=== PATIENT | female | born 1980 | race Caucasian/White ===

== ENCOUNTER 2019-05-08 12:05 | Inpatient (IN) ==
[2019-05-08] MEDS ORDERED: LR 500 ML IV ONE (12:46)
[2019-05-08] MEDS ORDERED: REGLAN PO ONE (12:46)
[2019-05-08] MEDS ORDERED: PEPCID PO ONE (12:46)
[2019-05-08] MEDS ORDERED: KEFZOL 1 GM/D5W 1 GM/50 ML IVPB IV PRN (12:46)
[2019-05-08] MEDS ORDERED: FENTANYL ONE (13:35)
[2019-05-08 13:36] LABS: URINE SOURCE VOIDED
[2019-05-08 13:46] LABS: BILIRUBIN URINE NEGATIVE (NEGATIVE); BLOOD URINE NEGATIVE (NEGATIVE); COLOR YELLOW; GLUCOSE URINE NEGATIVE (NEGATIVE); KETONE URINE NEGATIVE (NEGATIVE); LEUKOCYTES URINE SMALL (NEGATIVE); NITRITE URINE NEGATIVE (NEGATIVE); PH URINE 6.5; PROTEIN URINE TRACE mg/dL (NEGATIVE); SP GRAVITY URINE 1.017; TURBIDITY URINE HAZY (CLEAR); UROBILINOGEN URINE NORMAL (NORMAL)
[2019-05-08] MEDS ORDERED: KEFZOL 2 GM/D5W 2 GM/50 ML IVPB IV ONE (14:39)
[2019-05-08 14:44] LABS: UR AMPHETAMINES QUAL NONE DETECTED (NONE DETECT); UR BARBITUATES QUAL NONE DETECTED (NONE DETECT); UR BENZODIAZEPIN QUAL NONE DETECTED (NONE DETECT); UR CANNABINOIDS QUAL NONE DETECTED (NONE DETECT); UR COCAINE QUAL NONE DETECTED (NONE DETECT); UR METHADONE QUAL NONE DETECTED (NONE DETECT); UR OPIATES QUAL NONE DETECTED (NONE DETECT); UR OXYCODONE QUAL NONE DETECTED (NONE DETECT); UR PCP QUAL NONE DETECTED (NONE DETECT)
[2019-05-08] MEDS: LR 1,000 ML IV SCH ×2 (14:57→15:55)
--- NOTE | 2019-05-08 15:02 | HISTORY AND PHYSICAL ---
HISTORY OF PRESENT ILLNESS: Mrs. Barahona is a 38-year-old, G1, P0 at 37 weeks gestation and 0 days who presents to Labor and Delivery for a scheduled primary delivery secondary to gestational hypertension. The patient seen and evaluated by Maternal Medicine Dr. Zepeda. Last appointment with Dr. Zepeda was Saturday on 05/04 where elevated pressures were noted at 36 weeks and 2 days. Pressures in the range of 140s/90s. Preeclampsia labs were obtained at Maternal Medicine office. Per Dr. Zepeda's recommendations, should pressures remain elevated at next scheduled obstetrical appointment delivery, we advised to proceed with delivery at 37 weeks gestation. The patient reports good movement. Denies contractions, leakage of fluid or bleeding. The patient also denies headache, visual changes, scotomata, right upper quadrant pain, or epigastric pain. PAST MEDICAL HISTORY: Advanced maternal age, hypothyroidism, and cervical dysplasia. CURRENT MEDICATIONS: vitamins and levothyroxine 75 mcg p.o. daily. ALLERGIES: Naproxen unknown side effect. Adhesive tape rash. Doxycycline unknown side effect. PAST SURGICAL HISTORY: Loop electrosurgical excision procedure of the cervix. Back surgery with vertebrae fusions. OBSTETRICAL HISTORY: G 1, P0. Current . Last growth ultrasound showed a large for gestational age fetus measuring 8 pounds 2 ounces at 36 weeks and 2 days. BRAND MARKETING MANAGER HISTORY: Last menstrual period 08/22/2018. Pap 10/15/2018, negative for intraepithelial lesions or malignancy. SOCIAL HISTORY: Positive tobacco use. Admits to 4 to 6 cigarettes a day. Denies alcohol or drug use. FAMILY HISTORY: Noncontributory. PHYSICAL EXAMINATION: VITAL SIGNS: Temperature 98.9 degrees Fahrenheit, pulse rate 92, blood pressure in office 140s over 80s, weight 194 pounds, height 5 feet 7 inches tall. GENERAL: No acute distress. Alert, awake, and oriented x3. CARDIOVASCULAR: Regular rate and rhythm. Positive S1, S2. RESPIRATORY: Clear to auscultation bilaterally. Negative rhonchi rales, or wheezing. ABDOMEN: Gravid, soft. Nontender to palpation. EXTREMITIES: Negative calf tenderness. There is +1 edema. PELVIC: Electronic monitoring category 1 tracing 135 beats per minute, moderate variability, negative decelerations, positive accelerations. laboratory: TSH 0.88, free T4 1.28. RPR nonreactive. Hepatitis B surface antigen nonreactive. Hepatitis C antibody negative. HIV antibody screen nonreactive. Rubella immune. ASSESSMENT: Ms. Barahona is a 38-year-old G1, P0 at 37 weeks gestation, who presents to Labor and Delivery for scheduled primary delivery secondary to gestational hypertension. PLAN: 1. Admit to Labor and Delivery. 2. Obtain routine labs for a scheduled delivery. 3. Obtain preeclampsia labs. 4. monitoring pre and post spinal procedure. 5. IV antibiotics 1 hour prior to start of section. 6. Patient counseled on benefits, risks, and alternatives of the procedure, alternatives, not limited to induction of labor for a vaginal delivery. The patient declines. Risks not limited to, bleeding, infection, injury to surrounding organs including bowel, bladder, ureters or an injury to the fetus. The patient understands risk and agrees to procedure. 7. We will resume Synthroid post procedure.
[2019-05-08 15:09] LABS: BASO# 0.02 X1000 (0.0-0.2); BASO% 0.2 % (0.0-0.8); EOS# 0.16 X1000 (0.0-0.7); EOS% 1.3 % (0.0-10.0); HEMATOCRIT 32.4 % (37.0-47.0); HEMOGLOBIN 11.5 g/dL (12.0-16.0); IMM GRAN# 0.07 X1000 (0.0-0.04); IMM GRAN% 0.6 % (0.0-0.5); LYMPH# 2.71 X1000 (1.2-3.4); LYMPH% 21.4 % (20.5-51.1); MCH 33.7 PG (27-31); MCHC 35.5 g/dL (33-37); MONO# 0.64 X1000 (0.11-0.59); MONO% 5.1 % (1.7-9.3); MPV 10.2 FL (7.4-10.4); NEUT# 9.05 X1000 (1.4-6.5); NEUT% 71.4 % (42.2-75.2); PLT 214 X1000 (130-400); RBC 3.41 XMIL (4.2-5.4); RDW 13.4 % (11.5-14.5); WBC 12.65 X1000 (4.8-10.8)
[2019-05-08] MEDS ORDERED: BICITRA PO ONE (15:15)
[2019-05-08 15:25] LABS: AGAP 17; ALB/GLOB RATIO 1.6; ALBUMIN 3.8 g/dL (3.5-5.0); ALKALINE PHOSPHATASE 181 U/L (32-104); BUN 8 mg/dL (8-22); CALCIUM 9.1 mg/dL (8.8-10.2); CHLORIDE 102 mmol/L (98-107); COSMO 274; CREATININE 0.5 mg/dL (0.5-0.9); ESTIMATED GFR > 60; GLUCOSE 73 mg/dL (70-104); GOT 16 U/L (10-30); GPT 9 U/L (10-36); POTASSIUM 3.7 mmol/L (3.5-5.1); SODIUM 139 mmol/L (136-145); TCO2 20 mmol/L (25-35); TOTAL BILIRUBIN 0.38 mg/dL (0.20-1.00); TOTAL PROTEIN 6.2 g/dL (6.3-8.3)
[2019-05-08] MEDS ORDERED: ZOFRAN ONE (16:59)
[2019-05-08] MEDS ORDERED: OFIRMEV 1000 MG/ISOTONIC SOLN 1,000 MG/100 ML BOTTLE ONE (16:59)
[2019-05-08] MEDS ORDERED: PITOCIN ONE (16:59)
[2019-05-08] MEDS ORDERED: NEO-SYNEPHRINE ONE (16:59)
[2019-05-08] MEDS ORDERED: TORADOL ONE (17:03)
[2019-05-08] MEDS ORDERED: PITOCIN 20 UNITS/NS 20 UNITS/1,000 ML IV.SOLN ONE (17:35)
[2019-05-08] MEDS ORDERED: DEMEROL IM PRN (17:40)
[2019-05-08] MEDS ORDERED: HYDROXYZINE IM PRN (17:40)
[2019-05-08] MEDS ORDERED: MYLICON PO PRN (17:40)
[2019-05-08] MEDS ORDERED: DULCOLAX PR PRN (17:40)
[2019-05-08] MEDS ORDERED: NORCO-5 PO PRN (17:40)
[2019-05-08] MEDS ORDERED: DEMEROL PO PRN ×2 (17:40)
[2019-05-08] MEDS ORDERED: NORCO-10 PO PRN (17:40)
[2019-05-08] MEDS ORDERED: PITOCIN IM PRN (17:40)
[2019-05-08] MEDS ORDERED: PHENERGAN IM PRN (17:40)
[2019-05-08] MEDS ORDERED: AMBIEN PO PRN (17:40)
[2019-05-08] MEDS ORDERED: M-M-R II VACCINE SUBQ ONE (17:40)
[2019-05-08] MEDS ORDERED: PITOCIN 20 UNITS/NS 20 UNITS/1,000 ML IV.SOLN IV ONE (17:40)
[2019-05-08] MEDS ORDERED: LR 1,000 ML IV SCH (17:45)
[2019-05-08] MEDS ORDERED: BENADRYL IV PRN (17:45)
[2019-05-08] MEDS ORDERED: SODIUM CHLORIDE 0.9% INJ PRN (17:45)
[2019-05-08] MEDS ORDERED: NARCAN IV PRN (17:45)
[2019-05-08] MEDS ORDERED: PHENERGAN IV PRN (17:45)
[2019-05-08] MEDS: MORPHINE PCA IV PRN (19:05)
[2019-05-08] MEDS: MYLICON PO SCH (21:34)
[2019-05-08] MEDS: PERICOLACE PO SCH (21:34)
[2019-05-09] MEDS ORDERED: PITOCIN 10 UNITS/NS 1,000 ML IV SCH (01:00)
[2019-05-09 04:42] LABS: HEMATOCRIT 31.3 % (37.0-47.0); HEMOGLOBIN 10.7 g/dL (12.0-16.0); MCH 32.6 PG (27-31); MCHC 34.2 g/dL (33-37); MCV 95.4 FL (81-99); MPV 9.6 FL (7.4-10.4); RBC 3.28 XMIL (4.2-5.4); RDW 13.4 % (11.5-14.5); WBC 13.05 X1000 (4.8-10.8)
[2019-05-09] MEDS: MORPHINE PCA IV PRN (05:05)
--- NOTE | 2019-05-09 07:07 | OB/GYN PROGRESS NOTE ---
- Subjective asking about food, medication helping OB Physical Exam Vital Signs - 8 hr 05/09/19 00:15 05/09/19 04:30 Temperature 98.1 F Pulse Rate 66 73 Respiratory Rate 18 18 Blood Pressure 118/59 131/70 O2 Sat by Pulse Oximetry 93 L - CONSTITUTIONAL General Appearance: appears well, alert, no apparent distress - EYES Eyes: PERRL/EOMI - HEAD, EARS, NOSE, MOUTH & THROAT HENMT: normocephalic/atraumatic - NECK Neck: non-tender, full range of motion - RESPIRATORY Respiratory: no respiratory distress - CARDIOVASCULAR Cardiovascular: regular rate, rhythm - CHEST (BREASTS) Chest/Breast: deferred - GASTROINTESTINAL (ABDOMEN) Abdominal Exam: non tender, soft (appropriate for procedure) - GENITOURINARY Female Genitalia/Pelvic Exam: deferred - MUSCULOSKELETAL Back Exam: normal inspection Extremity: normal range of motion, non-tender - SKIN Integumentary: normal color, normal turgor - NEUROLOGIC Neurologic: grossly normal - PSYCHIATRIC Psych/Mental Status: normal mood/affect, oriented x 3 Active Medications Generic Name Dose Route Start Last Admin Trade Name Freq PRN Reason Stop Dose Admin Hydrocodone Bitart/Acetaminophen 1 each 05/08/19 17:40 [place]-10 PO Q3-4H PRN PRN Pain (7-10 on Pain Scale) Hydrocodone Bitart/Acetaminophen 1 each 05/08/19 17:40 [place]-5 PO Q3H PRN PRN Pain (1-6 on Pain Scale) Bisacodyl 10 mg 05/08/19 17:40 Dulcolax [place] PRN PRN gas unrelieved by Mylicon Diphenhydramine HCl 12.5 - 25 mg 05/08/19 17:45 Benadryl IV Q6H PRN PRN Itching Hydroxyzine HCl 50 mg 05/08/19 17:40 Atarax PO Q3-4H PRN PRN Nausea Hydroxyzine HCl 50 mg 05/08/19 17:40 Hydroxyzine IM Q3-4H PRN PRN Nausea Lactated Ringer's 1,000 mls @ 125 mls/hr 05/08/19 13:00 05/08/19 15:55 Lr IV 125 mls/hr .Q8H NEVAEH Administration Lactated Ringer's 1,000 mls @ 42 mls/hr 05/08/19 17:45 Lr IV .[id number] NEVAEH KVO Lactated Ringer's 1,000 mls @ 125 mls/hr 05/09/19 17:41 Lr IV .Q8H NEVAEH Oxytocin/Sodium Chloride 1,000 mls @ 125 mls/hr 05/09/19 01:00 Pitocin 10 Units/Ns IV 05/09/19 16:59 .Q8H [facility] Levothyroxine Sodium 75 microgm 05/09/19 07:00 Synthroid PO DAILY@0700 NEVAEH Meperidine HCl 50 mg 05/08/19 17:40 Demerol IM Q3H PRN PRN Pain Meperidine HCl 100 mg 05/08/19 17:40 Demerol PO Q4H PRN PRN Pain (7-10 on Pain Scale) Meperidine HCl 50 mg 05/08/19 17:40 Demerol PO Q4H PRN PRN Pain (1-6 on Pain Scale) Morphine Sulfate 0 mg 05/08/19 17:45 05/09/19 05:05 Morphine [place]ogs[place] Roller IV 30 mg PRN PRN Administration Pain Naloxone HCl 0.2 mg 05/08/19 17:45 Narcan IV PRN PRN DECREASED RESPIRATORY RATE Oxytocin 20 unit 05/08/19 17:40 Pitocin IM PRN PRN Severe bleeding Multivit/Folic Acid/Iron 1 each 05/08/19 20:30 Precare PO DAILY [facility] Promethazine HCl 12.5 mg 05/08/19 17:45 Phenergan IV Q6H PRN PRN Nausea Promethazine HCl 25 mg 05/08/19 17:40 Phenergan IM Q3H PRN PRN Pain Senna/Docusate Sodium 1 each 05/08/19 21:00 05/08/19 21:34 Pericolace PO 1 each QHS NEVAEH Administration Simethicone 80 mg 05/08/19 18:00 05/08/19 21:34 Mylicon PO 80 mg PC + HS NEVAEH Administration Simethicone 80 mg 05/08/19 17:40 Mylicon PO PRN PRN GAS Sodium Chloride 10 ml 05/08/19 17:45 Sodium Chloride 0.9% INJ PRN PRN TO DILUTE PHENERGAN FOR IV USE Zolpidem Tartrate 10 mg 05/08/19 17:40 Ambien PO HS PRN PRN Sleep Laboratory Results - last 24 hr 05/08/19 05/08/19 05/08/19 12:10 12:10 13:20 WBC 12.65 H RBC 3.41 L Hgb 11.5 L Hct 32.4 L MCV 95.0 MCH 33.7 H MCHC 35.5 RDW Std Deviation 13.4 Plt Count 214 MPV 10.2 Immature Gran % (Auto) 0.6 H Neut % (Auto) 71.4 Lymph % (Auto) 21.4 [place] % (Auto) 5.1 Eos % (Auto) 1.3 Baso % (Auto) 0.2 Immature Gran # (Auto) 0.07 H Neut # (Auto) 9.05 H Lymph # (Auto) 2.71 [place] # (Auto) 0.64 H Eos # (Auto) 0.16 Baso # (Auto) 0.02 Sodium Potassium Chloride Carbon Dioxide Anion Gap BUN Creatinine Estimated GFR/1.73 m2 BUN/Creatinine Ratio Glucose Calculated Osmolality Calcium Total Bilirubin AST ALT Alkaline Phosphatase Total Protein Albumin Globulin Albumin/Globulin Ratio Urine Source VOIDED Urine Color YELLOW Urine Turbidity HAZY Urine pH 6.5 Ur Specific [place] 1.017 Urine Protein TRACE A Ur Glucose (Stick) NEGATIVE Ur Ketones (Stick) NEGATIVE Urine Blood NEGATIVE Urine Nitrite NEGATIVE Urine Bilirubin NEGATIVE Urobilinogen Dipstick NORMAL Urine Leukocytes SMALL A Urine Opiates Screen NONE DETECTED Ur Oxycodone Screen NONE DETECTED Ur Methadone, Qual NONE DETECTED Ur Barbiturates Screen NONE DETECTED Ur Phencyclidine Scrn NONE DETECTED Ur Amphetamines Screen NONE DETECTED U Benzodiazepines Scrn NONE DETECTED Urine Cocaine Screen NONE DETECTED U Cannabinoids Screen NONE DETECTED RPR Blood Type Antibody Screen 05/08/19 05/08/19 05/08/19 13:20 13:20 13:20 WBC RBC Hgb Hct MCV MCH MCHC RDW Std Deviation Plt Count MPV Immature Gran % (Auto) Neut % (Auto) Lymph % (Auto) [place] % (Auto) Eos % (Auto) Baso % (Auto) Immature Gran # (Auto) Neut # (Auto) Lymph # (Auto) [place] # (Auto) Eos # (Auto) Baso # (Auto) Sodium 139 Potassium 3.7 Chloride 102 Carbon Dioxide 20 L Anion Gap 17 BUN 8 Creatinine 0.5 Estimated GFR/1.73 m2 > 60 BUN/Creatinine Ratio 16 Glucose 73 Calculated Osmolality 274 Calcium 9.1 Total Bilirubin 0.38 AST 16 ALT 9 L Alkaline Phosphatase 181 H Total Protein 6.2 L Albumin 3.8 Globulin 2.4 Albumin/Globulin Ratio 1.6 Urine Source Urine Color Urine Turbidity Urine pH Ur Specific [place] Urine Protein Ur Glucose (Stick) Ur Ketones (Stick) Urine Blood Urine Nitrite Urine Bilirubin Urobilinogen Dipstick Urine Leukocytes Urine Opiates Screen Ur Oxycodone Screen Ur Methadone, Qual Ur Barbiturates Screen Ur Phencyclidine Scrn Ur Amphetamines Screen U Benzodiazepines Scrn Urine Cocaine Screen U Cannabinoids Screen RPR NON-REACTIVE Blood Type B POSITIVE Antibody Screen NEGATIVE 05/09/19 04:25 WBC 13.05 H RBC 3.28 L Hgb 10.7 L Hct 31.3 L MCV 95.4 MCH 32.6 H MCHC 34.2 RDW Std Deviation 13.4 Plt Count 178 MPV 9.6 Immature Gran % (Auto) Neut % (Auto) Lymph % (Auto) [place] % (Auto) Eos % (Auto) Baso % (Auto) Immature Gran # (Auto) Neut # (Auto) Lymph # (Auto) [place] # (Auto) Eos # (Auto) Baso # (Auto) Sodium Potassium Chloride Carbon Dioxide Anion Gap BUN Creatinine Estimated GFR/1.73 m2 BUN/Creatinine Ratio Glucose Calculated Osmolality Calcium Total Bilirubin AST ALT Alkaline Phosphatase Total Protein Albumin Globulin Albumin/Globulin Ratio Urine Source Urine Color Urine Turbidity Urine pH Ur Specific [place] Urine Protein Ur Glucose (Stick) Ur Ketones (Stick) Urine Blood Urine Nitrite Urine Bilirubin Urobilinogen Dipstick Urine Leukocytes Urine Opiates Screen Ur Oxycodone Screen Ur Methadone, Qual Ur Barbiturates Screen Ur Phencyclidine Scrn Ur Amphetamines Screen U Benzodiazepines Scrn Urine Cocaine Screen U Cannabinoids Screen RPR Blood Type Antibody Screen OB Assessment & Plan (1) Status post repeat low transverse section Status: Acute Plan: routine care, mobilize, OOB
[2019-05-09] MEDS: PRECARE PO SCH (08:53)
[2019-05-09] MEDS: MYLICON PO SCH ×4 (08:54→21:50)
[2019-05-09] MEDS: ATARAX PO PRN ×2 (13:44→20:39)
[2019-05-09] MEDS ORDERED: LR 1,000 ML IV SCH (17:41)
[2019-05-09] MEDS ORDERED: CHLORASEPTIC SORE THROAT LOZENGE MT ONE (19:47)
[2019-05-09] MEDS: PERICOLACE PO SCH (20:25)
[2019-05-09] MEDS: PERCOCET-5 PO PRN (20:40)
[2019-05-10] MEDS: PERCOCET-10 PO PRN ×5 (00:01→22:05)
[2019-05-10] MEDS: PERCOCET-5 PO PRN (04:24)
[2019-05-10] MEDS: SYNTHROID PO SCH ×2 (04:56→07:09)
--- NOTE | 2019-05-10 07:05 | OB/GYN PROGRESS NOTE ---
- Subjective feeling better , medication helping discomfort, would like to go home tomorrow OB Physical Exam Vital Signs - 8 hr 05/10/19 00:00 05/10/19 04:20 Temperature 99.0 F 98.2 F Pulse Rate 62 60 Respiratory Rate 20 18 Blood Pressure 114/56 122/58 O2 Sat by Pulse Oximetry 96 95 - CONSTITUTIONAL General Appearance: appears well, alert, no apparent distress - EYES Eyes: PERRL/EOMI - HEAD, EARS, NOSE, MOUTH & THROAT HENMT: normocephalic/atraumatic - NECK Neck: non-tender - RESPIRATORY Respiratory: no respiratory distress - CARDIOVASCULAR Cardiovascular: regular rate, rhythm - CHEST (BREASTS) Chest/Breast: deferred - GASTROINTESTINAL (ABDOMEN) Abdominal Exam: other (incision intact, without erythema or induration, steristrips intact, fundus appropriately tender) - MUSCULOSKELETAL Extremity: normal range of motion - SKIN Integumentary: normal color - NEUROLOGIC Neurologic: grossly normal - PSYCHIATRIC Psych/Mental Status: normal mood/affect, oriented x 3 Active Medications Generic Name Dose Route Start Last Admin Trade Name Freq PRN Reason Stop Dose Admin Bisacodyl 10 mg 05/08/19 17:40 Dulcolax [place] PRN PRN gas unrelieved by Mylicon Diphenhydramine HCl 12.5 - 25 mg 05/08/19 17:45 Benadryl IV Q6H PRN PRN Itching Hydroxyzine HCl 50 mg 05/08/19 17:40 05/09/19 20:39 Atarax PO 50 mg Q3-4H PRN PRN Administration Nausea Hydroxyzine HCl 50 mg 05/08/19 17:40 Hydroxyzine IM Q3-4H PRN PRN Nausea Levothyroxine Sodium 75 microgm 05/09/19 07:00 05/10/19 04:56 Synthroid PO Not Given DAILY@0700 [facility] Meperidine HCl 50 mg 05/08/19 17:40 Demerol IM Q3H PRN PRN Pain Meperidine HCl 100 mg 05/08/19 17:40 Demerol PO Q4H PRN PRN Pain (7-10 on Pain Scale) Meperidine HCl 50 mg 05/08/19 17:40 05/09/19 16:11 Demerol PO 50 mg Q4H PRN PRN Administration Pain (1-6 on Pain Scale) Naloxone HCl 0.2 mg 05/08/19 17:45 Narcan IV PRN PRN DECREASED RESPIRATORY RATE Oxycodone/Acetaminophen 1 each 05/09/19 16:39 05/10/19 00:01 Percoc[place]-10 PO 1 each Q4H PRN PRN Administration Pain Oxycodone/Acetaminophen 1 each 05/09/19 20:09 05/10/19 04:24 Percocet-5 PO 1 each Q4H PRN PRN Administration Pain Oxytocin 20 unit 05/08/19 17:40 Pitocin IM PRN PRN Severe bleeding Multivit/Folic Acid/Iron 1 each 05/08/19 20:30 05/09/19 08:53 Precare PO 1 each DAILY NEVAEH Administration Promethazine HCl 12.5 mg 05/08/19 17:45 Phenergan IV Q6H PRN PRN Nausea Promethazine HCl 25 mg 05/08/19 17:40 Phenergan IM Q3H PRN PRN Pain Senna/Docusate Sodium 1 each 05/08/19 21:00 05/09/19 20:25 Pericolace PO 1 each QHS NEVAEH Administration Simethicone 80 mg 05/08/19 18:00 05/09/19 21:50 Mylicon PO 80 mg PC + HS NEVAEH Administration Simethicone 80 mg 05/08/19 17:40 Mylicon PO PRN PRN GAS Sodium Chloride 10 ml 05/08/19 17:45 Sodium Chloride 0.9% INJ PRN PRN TO DILUTE PHENERGAN FOR IV USE Zolpidem Tartrate 10 mg 05/08/19 17:40 Ambien PO HS PRN PRN Sleep OB Assessment & Plan (1) Status post repeat low transverse section Status: Acute Plan: continue with present management, wishes to proceed with circumcision, all questions answered
[2019-05-10] MEDS: PRECARE PO SCH (08:28)
[2019-05-10] MEDS: MYLICON PO SCH ×4 (08:29→20:51)
[2019-05-10] MEDS: PERICOLACE PO SCH (20:51)
[2019-05-11] MEDS: PERCOCET-5 PO PRN (01:58)
[2019-05-11] MEDS: ATARAX PO PRN (01:58)
--- NOTE | 2019-05-11 07:03 | DISCHARGE SUMMARY ---
ADMISSION DATE: 05/08/2019 DISCHARGE DATE: FAMILY PHYSICIAN: Dr. Amisha López. HISTORY OF PRESENT ILLNESS: Ms. Barahona is a 38-year-old, 1, para 1 now, who was admitted on 05/08/2019 at 37 weeks for scheduled primary section secondary to gestational hypertension. The patient's procedure was performed uneventfully, and her postop course was essentially benign. Her blood pressures were normal on discharge. PAST MEDICAL HISTORY: Remarkable for advanced maternal age, hypothyroidism, and cervical dysplasia. CURRENT MEDICATIONS: Include vitamins, levothyroxine 75 mcg p.o. daily, Percocet, and Motrin. ALLERGIES: Naproxen, adhesive tape (rash), and possibly Vibramycin. PAST SURGERY HISTORY: Includes a LEEP procedure of the cervix for dysplasia, and back surgery with vertebral fusions. SOCIAL HISTORY: She is positive for tobacco use. Denies alcohol or illicit drug use. FAMILY HISTORY: Noncontributory. PHYSICAL EXAMINATION: Vital Signs: Stable. She was afebrile. Her blood pressure is 131/61, with a pulse of 72. Cardiovascular/Lungs: Negative. Abdomen: Soft, appropriately tender. Incision was healing adequately with no induration or erythema. Extremities: Benign. ASSESSMENT: Routine recovery, day #3. The patient is stable for discharge, and she will be discharged home with followup in the office in approximately 2 weeks to check her incision and her blood pressure. The patient verbalized understanding of discharge instructions, and all questions were answered.
[2019-05-11] MEDS: SYNTHROID PO SCH (08:30)
[2019-05-11] MEDS: PRECARE PO SCH ×2 (08:30→08:31)
[2019-05-11] MEDS: MYLICON PO SCH (08:31)
[2019-05-11 08:39] VITALS: BP 142/67
[2019-05-11] MEDS: PERCOCET-10 PO PRN ×2 (08:45→12:47)
--- NOTE | 2019-05-15 07:45 | OPERATIVE NOTE ---
PROCEDURE DATE: 05/08/2019 SURGEON: Dr. Amisha López IN STORE BANKER: Deepthi Amin. PREOPERATIVE DIAGNOSES: 1. Intrauterine at 37 weeks. 2. Gestational hypertension. 3. Patient desires primary delivery. POSTOPERATIVE DIAGNOSES: 1. Intrauterine at 37 weeks. 2. Gestational hypertension. 3. Patient desires primary delivery. PROCEDURE PERFORMED: Primary low-transverse delivery. ANESTHESIA: Spinal anesthesia. ESTIMATED BLOOD LOSS: 600 mL FINDINGS: Male weighing 7 pounds 10 ounces. Nuchal cord x4. COMPLICATIONS: None. SURGICAL RISK: The patient was informed of the risks and benefits of the procedure. Risks included, but were not limited to, bleeding, infection, injury to internal organs and possible hysterectomy. The patient expressed understanding of the risks involved. All questions were answered, and the patient consented to the procedure. DESCRIPTION OF PROCEDURE: Patient was taken to the operating room where a time- out was performed to confirm correct patient and correct procedure. Spinal anesthesia was adequately established, and prophylactic intravenous antibiotics were administered. The patient was then placed in a dorsal supine position with a leftward tilt of the hips. The patient was then prepped and draped in the usual sterile fashion for a Pfannenstiel skin incision. Incision was then made in the skin with a surgical scalpel, and sharp dissection was carried out over subsequent layers of tissue including the fascia followed by the Bovie electrocautery for hemostasis. The fascia was incised at the midline, and the fascial incision was extended bilaterally using the Bovie electrocautery. The inferior edge of the fascial incision was grasped with Chris clamps, tented up, and the underlying rectus muscle was dissected off bluntly using the Bovie electrocautery. Attention was then turned to the superior edge which was grasped with Chris clamps, tented up, and the underlying rectus muscles were dissected off bluntly using the Bovie electrocautery. The rectus muscles were then divided at the midline, and the peritoneum was identified and bluntly entered at its superior margin taking care to avoid the bladder. The peritoneal incision was extended superiorly and inferiorly using Bovie electrocautery with good visualization of the bladder. The bladder blade was inserted and the vesicouterine peritoneum was identified, grasped with the pickups, and cut laterally to both sides using the Metzenbaum scissors. A bladder flap was then created using blunt dissection. The bladder blade was reinserted, and a transverse incision was made in the lower uterine segment using the scalpel. The uterine incision was extended bilaterally using blunt dissection. The amniotic sac was entered, and the amniotic fluid was noted to be clear. The surgeon's hand was placed into the uterine cavity. The head was identified, elevated into the abdomen, and delivered through the uterine incision with the assistance of fundal pressure. The was examined for nuchal cord, and nuchal cord x4 was identified and reduced. The was then delivered with traction, and the assistance of fundal pressure. The infant's oral and nasal passages were bulb suctioned. On delivery, the cord was clamped and cut. The infant was then passed off the table to the waiting trailer sections assembler staff for further care. Cord blood was obtained for analysis and routine blood testing. The placenta was manually extracted intact with a three-vessel cord. Oxytocin was administered by IV infusion to enhance uterine contraction. The uterus was exteriorized, and cleared of all clots and remaining products of conception. Uterine incision was reapproximated using a 0 Monocryl absorbable suture in a running locked fashion. Non hemostatic areas were reinforced using 0 Monocryl suture in a [id number] fashion. Good hemostasis was confirmed. The uterus was replaced in the abdomen. The pericolic gutters were cleared of all clots. The fascia was reapproximated using 0 Vicryl absorbable suture in a running nonlocked fashion. The subcutaneous fat was reapproximated using 2- 0 plain gut in a running nonlocking fashion. The skin was reapproximated using 4-0 Monocryl on a Sherwin stitch insert in a running subcuticular fashion. All needle, sponge, and instrument counts were noted to be correct x2 at the end of the procedure. The patient tolerated the procedure well, and was transferred to the recovery room in stable condition. [facility]
== END 2019-05-11 16:46 | disposition home or self-care (01) | DRG 788 ==
LOC: LD 12:05
PROVIDERS: ADMIT Obstetrics & Gynecology; ATTEND Obstetrics & Gynecology